=== PATIENT | female | born 1985 | race Caucasian/White ===

== ENCOUNTER 2018-04-27 08:55 | Emergency (ER) | payer MEDICAID ==
[~2018-04-27] VITALS: Ht 162.6 cm; Wt 60.3 kg
[2018-04-27 09:06] VITALS: BP_SYST 108
[2018-04-27 09:45] VITALS: BP_SYST 108
== END 2018-04-27 09:45 | disposition home or self-care (01) ==
LOC: SED 08:55
DX: N39.0 Urinary tract infection, site not specified (principal); Z88.1 Allergy status to other antibiotic agents
CPT/HCPCS: 81002; 81025; 99283

== ENCOUNTER 2018-11-02 16:28 | Emergency (ER) | payer MEDICAID ==
[~2018-11-02] VITALS: Ht 162.6 cm; Wt 59.0 kg
[2018-11-02 16:37] VITALS: BP_SYST 107
--- NOTE | 2018-11-02 16:42 | NUR ---
Patient triaged and placed in waiting room. VSS and patient appears in no acute distress at this time. Accompanied by self, awaiting available bed, and MD notified of need for MSE.
--- NOTE | 2018-11-02 17:09 | NUR ---
Urine HCG done, results neg
[2018-11-02 17:15] LABS: BILIRUBIN,URINE NEGATIVE (NEGATIVE); BLOOD, URINE NEGATIVE (NEGATIVE); CLARITY/URINE HAZY (CLEAR); COLOR,URINE YELLOW (YELLOW); GLUCOSE,URINE NEGATIVE (NEGATIVE); KETONES,URINE NEGATIVE (NEGATIVE); LEUKOCYTE ESTERASE ,URINE TRACE (NEGATIVE); NITRITE, URINE NEGATIVE (NEGATIVE); PH,URINE 6.5 (5.0-8.0); PROTEIN URINE NEGATIVE (NEGATIVE); UROBILINOGEN,URINE 0.2 (0.2-1.0)
[2018-11-02 17:40] LABS: BACTERIA,URINE MODERATE /HPF (None Seen); RBC,URINE 0-3 /HPF (0-3)
[2018-11-02 17:42] LABS: URINE AMORPHOUS URATE 1+ /HPF (None Seen)
--- NOTE | 2018-11-02 18:37 | NUR ---
Patient to ER chair for evaluation. Side rails up.
--- NOTE | 2018-11-02 18:38 | NUR ---
Patient complains of burning with urination x 1 day. Denies any pain. Denies any nausea/vomiting or diarrhea. Pain 0/10. No other complaints/injuries per patient or as noted. Will continue to monitor
--- NOTE | 2018-11-02 18:50 | NUR ---
Patient given written and verbal discharge instructions and verbalizes understanding. ER MD discussed with patient the results and treatment provided. Patient in stable condition. ID arm band removed. Rx of CIPRO, NAPROSYN, AND PYRIDIUM given. Patient educated on pain management and to follow up with PMD. Pain Scale 0/10. Opportunity for questions provided and answered. Medication side effect fact sheet provided.
[2018-11-02 18:53] VITALS: BP_SYST 107
== END 2018-11-02 18:50 | disposition home or self-care (01) ==
LOC: SED 16:28
DX: N39.0 Urinary tract infection, site not specified (principal); Z88.0 Allergy status to penicillin
CPT/HCPCS: 81000-TC; 81025; 87086; 99283

== ENCOUNTER 2019-02-12 15:49 | Emergency (ER) | payer MEDICAID ==
[~2019-02-12] VITALS: Ht 162.6 cm; Wt 59.0 kg
--- NOTE | 2019-02-12 15:58 | NUR ---
Patient to ER bed 5 to gown for evaluation. Side rails up. Assumed care.
--- NOTE | 2019-02-12 16:00 | NUR ---
Patient c/o abdominal pain for the past 4 days. Patient reports no medical or surgical history. Patient is allergic to amoxicillin. Patient denies taking any medication to relieve the pain. No signs or symptoms of acute distress noted. Skin warm/pink/dry and respirations even and unlabored.
[2019-02-12 16:27] LABS: BASOPHILS # (AUTO) 0.1 K/uL (0.0-0.2); BASOPHILS % (AUTO) 0.9 % (0.0-2.0); EOSINOPHILS # (AUTO) 0.3 K/uL (0.0-0.4); EOSINOPHILS % (AUTO) 4.3 % (0.0-4.0); HEMOGLOBIN 13.6 g/dL (12.0-16.0); LYMPHOCYTES % (AUTO) 26.5 % (20.5-51.5); MEAN CORPUSCULAR HEMOGLOBIN 28 pg (27-31); MEAN CORPUSCULAR HGB CONC 33 % (32-36); MEAN CORPUSCULAR VOLUME 85 fL (79.0-98.0); MONOCYTES # (AUTO) 0.4 K/uL (0.0-1.0); MONOCYTES % (AUTO) 5.9 % (1.7-9.3); NEUTROPHILS # (AUTO) 4.6 K/uL (1.8-7.7); NEUTROPHILS % (AUTO) 62.4 % (40.0-70.0); PLATELET COUNT (AUTO) 265 K/uL (130-430); RED BLOOD CELL COUNT(AUTO) 4.81 MIL/uL (4.2-6.2); RED CELL DISTRIBUTION WIDTH 13.7 % (9.0-15.0); WHITE BLOOD COUNT (AUTO) 7.4 K/uL (4.8-10.8)
[2019-02-12 16:45] LABS: CALCIUM 9.1 mg/dL (8.4-11.0); CREATININE 0.56 mg/dL (0.55-1.30); POTASSIUM 3.6 mmol/L (3.5-5.1)
[2019-02-12 16:50] LABS: ALBUMIN 4.1 g/dL (3.4-4.8); TOTAL BILIRUBIN 0.2 mg/dL (0.0-1.0)
--- NOTE | 2019-02-12 16:56 | NUR ---
OLEGARIO Rich at bedside examining patient.
--- NOTE | 2019-02-12 17:25 | NUR ---
Patient transported to radiology via wheelchair, accompanied by mold repair technician.
--- NOTE | 2019-02-12 17:45 | NUR ---
Returns to ER department from radiology. Placed on monitoring analyst, blood pressure machine and pulse oximeter.
--- NOTE | 2019-02-12 19:22 | NUR ---
Endorsement Endorsed bedside report to Michele SESAY using SBAR approach for continuation of care.
--- NOTE | 2019-02-12 19:22 | NUR ---
Pt report received. Pt denies pain or discomfort at this time, no needs verbalized. Pt states that she is ready to go. Dr. Covarrubias notified.
[2019-02-12 20:40] VITALS: BP_SYST 128
--- NOTE | 2019-02-12 20:40 | NUR ---
Patient given written and verbal discharge instructions and verbalizes understanding. ER MD discussed with patient the results and treatment provided. Patient in stable condition. ID arm band removed. Rx of Motrin given. Patient educated on pain management and to follow up with PMD. Pain Scale 0/10. Opportunity for questions provided and answered. Medication side effect fact sheet provided.
== END 2019-02-12 20:40 | disposition home or self-care (01) ==
LOC: SED 15:49
DX: N94.89 Other specified conditions associated with female genital organs and menstrual cycle (principal); Z88.0 Allergy status to penicillin
CPT/HCPCS: 36415; 76856-TC; 80053; 81002; 81025; 84702-TC; 85025; 99284

== ENCOUNTER 2019-05-28 10:59 | Emergency (ER) | payer MEDICAID ==
[~2019-05-28] VITALS: Ht 162.6 cm; Wt 59.0 kg
[2019-05-28 11:03] VITALS: BP_SYST 110
[2019-05-28] MEDS ORDERED: NACL 0.9% 1,000 ML IV ONE (11:22)
[2019-05-28 11:44] LABS: BASOPHILS % (AUTO) 0.8 % (0.0-2.0); EOSINOPHILS # (AUTO) 0.2 K/uL (0.0-0.4); EOSINOPHILS % (AUTO) 4.2 % (0.0-4.0); HEMATOCRIT 41.7 % (36-48); HEMOGLOBIN 13.5 g/dL (12.0-16.0); LYMPHOCYTES # (AUTO) 1.7 K/uL (1.0-5.5); LYMPHOCYTES % (AUTO) 31.1 % (20.5-51.5); MEAN CORPUSCULAR HEMOGLOBIN 27 pg (27-31); MEAN CORPUSCULAR HGB CONC 33 % (32-36); MEAN CORPUSCULAR VOLUME 85 fL (79.0-98.0); MONOCYTES # (AUTO) 0.3 K/uL (0.0-1.0); MONOCYTES % (AUTO) 5.2 % (1.7-9.3); NEUTROPHILS # (AUTO) 3.3 K/uL (1.8-7.7); NEUTROPHILS % (AUTO) 58.7 % (40.0-70.0); PLATELET COUNT (AUTO) 281 K/uL (130-430); RED BLOOD CELL COUNT(AUTO) 4.94 MIL/uL (4.2-6.2); RED CELL DISTRIBUTION WIDTH 13.4 % (9.0-15.0); WHITE BLOOD COUNT (AUTO) 5.5 K/uL (4.8-10.8)
[2019-05-28 12:08] LABS: BILIRUBIN,URINE NEGATIVE (NEGATIVE); BLOOD, URINE 3+ (NEGATIVE); COLOR,URINE YELLOW (YELLOW); GLUCOSE,URINE NEGATIVE (NEGATIVE); KETONES,URINE NEGATIVE (NEGATIVE); LEUKOCYTE ESTERASE ,URINE 1+ (NEGATIVE); NITRITE, URINE NEGATIVE (NEGATIVE); PROTEIN URINE NEGATIVE (NEGATIVE); UROBILINOGEN,URINE 0.2 (0.2-1.0)
[2019-05-28 12:08] LABS: CALCIUM 9.6 mg/dL (8.4-11.0); CREATININE 0.59 mg/dL (0.55-1.30); POTASSIUM 3.8 mmol/L (3.5-5.1)
[2019-05-28 12:13] LABS: CLARITY/URINE SLIGHTLY HAZY (CLEAR)
[2019-05-28 12:19] LABS: TOTAL BILIRUBIN 0.4 mg/dL (0.0-1.0)
[2019-05-28 12:24] LABS: RBC,URINE 20-50 /HPF (0-3)
[2019-05-28 12:25] LABS: BACTERIA,URINE FEW /HPF (None Seen); MUCUS,URINE 1+ /LPF (None Seen)
[2019-05-28 14:20] VITALS: BP_SYST 110
== END 2019-05-28 14:21 | disposition home or self-care (01) ==
LOC: SED 10:59
DX: O03.4 Incomplete spontaneous abortion without complication (principal); Z88.6 Allergy status to analgesic agent; Z88.1 Allergy status to other antibiotic agents; Z3A.01 Less than 8 weeks gestation of pregnancy
CPT/HCPCS: 36415; 76801; 76817; 80053; 81000; 81025; 84702; 85025; 86901; 87086; 99284; J7030